=== PATIENT | female | born 1960 | race Caucasian/White ===

== ENCOUNTER 2018-12-12 08:29 | Inpatient (IN) | payer BC ==
[2018-12-12 08:45] VITALS: BMI 30.9
--- NOTE | 2018-12-12 09:21 | HP ---
CIWA Score Nausea/Vomitin Muscle Tremors: 4-Moderate,w/Arms Extend Anxiety: 4-Mod. Anxious/Guarded Agitation: 1-Slight > Activity Paroxysmal Sweats: No Perspiration Orientation: 0-Oriented Tacttile Disturbances: 0-None Auditory Disturbances: 0-None Visual Disturbances: 0-None Headache: 3-Moderate CIWA-Ar Total Score: 15 - Admission Criteria OASAS Guidelines: Admission for Medically Managed Detox: Requires at least one of the followin. CIWA greater than 12 2. Seizures within the past 24 hours 3. Delirium tremens within the past 24 hours 4. Hallucinations within the past 24 hours 5. Acute intervention needed for co occurring medical disorder 6. Acute intervention needed for co occurring psychiatric disorder 7. Severe withdrawal that cannot be handled at a lower level of care (continued vomiting, continued diarrhea, abnormal vital signs) requiring intravenous medication and/or fluids 8. Patient presents the following: CIWA greater than 12 Admission Criteria Met: Admission criteria met Admitting History and Physical - Admission History Source: Patient Limitations to Obtaining History: No Limitations - Social History Usual Living Arrangement: Yes: With Spouse Admission ROS [facility] - [facility] Chief Complaint: I get so sick if I try to stop drinking - I can't do it Allergies/Adverse Reactions: Allergies Allergy/AdvReac Type Severity Reaction Status Date / Time No Known Allergies Allergy Verified 12/12/18 08:39 History of Present Illness: 58 yo woman here for detox from alcohol. First time in detox. No seizures but does have black outs. States she was in outpatient rehab in Feb 2018 and stayed sober for about 8 months but recently relapsed. She tried to stop drinking on her own but got so sick she went to [facility] and was sent for detox. A cxr was done at [facility] but written report cannot be obtained until Friday - noted on ED discharge papers that the CXR initial report was normal. 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 Patient lives with her spouse. Exam Limitations: No Limitations - Ebola screening Have you traveled outside of the country in the last 21 days: No Have you had contact with anyone from an Ebola affected area: No - Review of Systems Constitutional: Chills, Loss of Appetite, Night Sweats, Changes in sleep, Weakness EENT: reports: No Symptoms Reported Respiratory: reports: No Symptoms reported Cardiac: reports: No Symptoms Reported GI: reports: Nausea, Poor Appetite, Poor Fluid Intake, Vomiting, Indigestion, Abdominal cramping : reports: Frequency Musculoskeletal: reports: Joint Pain Integumentary: reports: Dryness Neuro: reports: Headache, Tremors Endocrine: reports: No Symptoms Reported Hematology: reports: No Symptoms Reported Psychiatric: reports: Judgement Intact, Mood/Affect Appropiate, Orientated x3, Anxious Other Systems: Reviewed and Negative Patient History - Patient Medical History Hx Anemia: No Hx Asthma: No Hx Chronic Obstructive Pulmonary Disease (COPD): No Hx Cancer: No Hx Cardiac Disorders: No Hx Congestive Heart Failure: No Hx Hypertension: No Hx Hypercholesterolemia: No Hx Pacemaker: No HX Cerebrovascular Accident: No Hx Seizures: No Hx Diabetes: No Hx Gastrointestinal Disorders: No Hx Liver Disease: No Hx Genitourinary Disorders: No Hx Sexually Transmitted Disorders: No Hx Renal Disease (ESRD): No Hx Thyroid Disease: No Hx Human Immunodeficiency Virus (HIV): No Hx Hepatitis C: No Hx Depression: No Hx Suicide Attempt: No Hx Bipolar Disorder: No Hx Schizophrenia: No Other Medical History: knee OA - Patient Surgical History Hx Abdominal Surgery: Yes (2013 gastric bypass surgery - lost 100 lbs) Hx Section: Yes - PPD History Previous Implant?: Yes Documented Results: Positive w/o proof Implanted On Prior [facility] Admission?: No Date: 12/11/18 (cxr neg) Results: ? BCG vaccine PPD to be Administered?: No - Reproductive History Patient is a Female of Child Bearing Age (11 -55 yrs old): No - Smoking Cessation Smoking history: Former smoker Have you smoked in the past 12 months: No Initiated information on smoking cessation: No - Substance & Tx. History Hx Alcohol Use: Yes Hx Substance Use: No Substance Use Type: Alcohol Hx Substance Use Treatment: Yes (outpatient rehab) - Substances abused Alcohol Substance route: Oral Frequency: Daily Amount used: 1 quart of vodka Age of first use: 19 Date of last use: 12/11/18 Admission Physical Exam [facility] - Vital Signs Vital Signs: Vital Signs - 24 hr 12/12/18 08:39 Temperature 97.2 F L Pulse Rate 93 H Respiratory 20 Rate Blood Pressure 155/91 - Physical General Appearance: Yes: Nourished, Appropriately Dressed, Mild Distress, Moderate Distress, Tremorous, Anxious HEENTM: Yes: EOMI, Hearing grossly Normal, Normocephalic, Normal Voice, Pharynx Normal, Other (tongue coated) Respiratory: Yes: Normal Breath Sounds, No Respiratory Distress Neck: Yes: No masses,lesions,Nodules Breast: Yes: Breast Exam Deferred Cardiology: Yes: Regular Rhythm, Regular Rate Abdominal: Yes: Soft Genitourinary: Yes: Frequency Back: Yes: Normal Inspection Musculoskeletal: Yes: full range of Motion, Gait Steady, Joint Stiffness Extremities: Yes: Normal Capillary Refill, Normal Inspection, Normal Range of Motion, Tremors Neurological: Yes: Fully Oriented, Alert, Normal Mood/Affect, Normal Response Integumentary: Yes: Normal Color, Warm Lymphatic: Yes: Within Normal Limits - Diagnostic (1) Alcohol dependence with withdrawal, uncomplicated Current Visit: Yes Status: Chronic (2) Dehydration Current Visit: Yes Status: Chronic (3) History of gastric bypass Current Visit: Yes Status: Chronic (4) 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
[2018-12-12] MEDS ORDERED: IBUPROFEN 400 MG TABLET (FP) PO PRN (09:33)
[2018-12-12] MEDS ORDERED: ACETAMINOPHEN 325 MG TABLET (FP) PO PRN ×2 (09:33)
[2018-12-12] MEDS ORDERED: MENTHOL/PHENOL 1 EACH UD MM PRN (09:33)
[2018-12-12] MEDS ORDERED: hydrOXYzine PAMOATE 25 MG CAPSULE (FP) PO PRN (09:33)
[2018-12-12] MEDS ORDERED: METHOCARBAMOL 500 MG TABLET PO PRN (09:33)
[2018-12-12] MEDS ORDERED: MAGNESIUM HYDROX 2400MG/30ML ORAL SUSPENSION 30 ML CUP PO PRN (09:33)
[2018-12-12] MEDS ORDERED: MELATONIN 5 MG TABLETS PO PRN (09:33)
[2018-12-12] MEDS ORDERED: BISMUTH SUBSALICYLATE 524 MG/30 ML UD PO PRN (09:33)
[2018-12-12] MEDS ORDERED: MAGNESIUM CITRATE 300 ML BOTTLE PO PRN (09:33)
[2018-12-12] MEDS ORDERED: MAG HYDROX/AL HYDROX/SIMETH 30 ML UNIT-DOSE CUP PO PRN (09:33)
[2018-12-12] MEDS ORDERED: LORazepam 1 MG TABLET PO ONE (09:39)
[2018-12-12] MEDS ORDERED: LORazepam 1 MG TABLET PO SCH (09:45)
[2018-12-12] MEDS ORDERED: chlordiazePOXIDE HCL 25 MG CAPSULE PO PRN (09:45)
[2018-12-12] MEDS ORDERED: chlordiazePOXIDE HCL 25 MG CAPSULE PO ONE (09:45)
[2018-12-12] MEDS: PRENATAL VITAMINS W/ FOLIC ACID TABLET (FP) PO SCH (10:45)
[2018-12-12] MEDS: chlordiazePOXIDE HCL 25 MG CAPSULE PO SCH ×3 (11:19→22:38)
[2018-12-12 11:31] LABS: HEMATOCRIT 32.4 % (32.4-45.2); HEMOGLOBIN 10.3 GM/dL (10.7-15.3); MCH 25.5 pg (25.7-33.7); MCHC 31.8 g/dl (32.0-36.0); MEAN CELL VOLUME 80.3 fl (80-96); MEAN PLT VOLUME 9.9 fl (7.5-11.1); PLATELET COUNT 241 K/MM3 (134-434); RBC 4.04 M/mm3 (3.60-5.2); WHITE BLOOD COUNT 3.6 K/mm3 (4.0-10.0)
[2018-12-12 11:44] LABS: ALBUMIN 3.6 g/dl (3.4-5.0); BILIRUBIN,TOTAL 0.2 mg/dL (0.2-1); BLOOD UREA NITROGEN 10.4 mg/dL (7-18); CREATININE 0.9 mg/dL (0.55-1.3); POTASSIUM 4.7 mmol/L (3.5-5.1); TOT PROT 6.7 g/dl (6.4-8.2)
[2018-12-12] MEDS ORDERED: THIAMINE HCL 100 MG TABLET (FP) PO SCH (22:00)
[2018-12-13] MEDS: chlordiazePOXIDE HCL 25 MG CAPSULE PO SCH ×3 (05:50→18:44)
[2018-12-13] MEDS: PRENATAL VITAMINS W/ FOLIC ACID TABLET (FP) PO SCH (10:38)
--- NOTE | 2018-12-13 16:53 | PN ---
S CIWA - CIWA Score Nausea/Vomitin-Mild Nausea/No Vomiting Muscle Tremors: 3 Anxiety: 3 Agitation: 3 Paroxysmal Sweats: 3 Orientation: 0-Oriented Tacttile Disturbances: 0-None Auditory Disturbances: 0-None Visual Disturbances: 0-None Headache: 0-None Present CIWA-Ar Total Score: 13 [facility] Progress Note (SOAP) Subjective: Feels ok, medication working. Patient requesting to leave tomorrow stating she wants to go home because have to be at work tomorrow. Patient aware she's not ready for discharge but she is planning to leave AMA tomorrow despite encouragement to complete detox. Objective: 12/13/18 16:52 Last Vital Signs Temp Pulse Resp BP Pulse Ox 97.2 F L 104 H 18 131/71 12/13/18 09:48 12/13/18 09:48 12/13/18 09:48 12/13/18 09:48 Laboratory Tests 12/12/18 12/12/18 12/12/18 10:20 10:20 10:20 WBC 3.6 L RBC 4.04 Hgb 10.3 L Hct 32.4 MCV 80.3 MCH 25.5 L MCHC 31.8 L RDW 19.0 H Plt Count 241 MPV 9.9 Sodium 140 Potassium 4.7 Chloride 104 Carbon Dioxide 30 Anion Gap 6 L BUN 10.4 Creatinine 0.9 Est GFR (CKD-EPI)AfAm 82.26 Est GFR (CKD-EPI)NonAf 70.98 Random Glucose 86 Calcium 9.0 Total Bilirubin 0.2 AST 17 ALT 25 Alkaline Phosphatase 66 Total Protein 6.7 Albumin 3.6 RPR Titer Nonreactive Labs reviewed Assessment: 12/13/18 16:52 Withdrawal sxs Plan: Continue detox Encouraged PO water intake
--- NOTE | 2018-12-13 17:01 | DS ---
[facility] Detox Discharge Summary Admission Date: 12/12/18 Discharge Date: 12/13/18 - History Present History: Alcohol Dependence Additional Comments: Patient presented seeking detox for alcohol use. - Physical Exam Results Vital Signs: Vital Signs Temperature 97.2 F L 12/13/18 09:48 Pulse Rate 104 H 12/13/18 09:48 Respiratory Rate 18 12/13/18 09:48 Blood Pressure 131/71 12/13/18 09:48 O2 Sat by Pulse Oximetry (%) Pertinent Admission Physical Exam Findings: Patient presented w/ alcohol withdrawal symptoms admitted to detox. Laboratory Last Values WBC 3.6 K/mm3 (4.0-10.0) L 12/12/18 10:20 RBC 4.04 M/mm3 (3.60-5.2) 12/12/18 10:20 Hgb 10.3 GM/dL (10.7-15.3) L 12/12/18 10:20 Hct 32.4 % (32.4-45.2) 12/12/18 10:20 MCV 80.3 fl (80-96) 12/12/18 10:20 MCH 25.5 pg (25.7-33.7) L 12/12/18 10:20 MCHC 31.8 g/dl (32.0-36.0) L 12/12/18 10:20 RDW 19.0 % (11.6-15.6) H 12/12/18 10:20 Plt Count 241 K/MM3 (134-434) 12/12/18 10:20 MPV 9.9 fl (7.5-11.1) 12/12/18 10:20 Sodium 140 mmol/L (136-145) 12/12/18 10:20 Potassium 4.7 mmol/L (3.5-5.1) 12/12/18 10:20 Chloride 104 mmol/L (98-107) 12/12/18 10:20 Carbon Dioxide 30 mmol/L (21-32) 12/12/18 10:20 Anion Gap 6 MMOL/L (8-16) L 12/12/18 10:20 BUN 10.4 mg/dL (7-18) 12/12/18 10:20 Creatinine 0.9 mg/dL (0.55-1.3) 12/12/18 10:20 Est GFR (CKD-EPI)AfAm 82.26 12/12/18 10:20 Est GFR (CKD-EPI)NonAf 70.98 12/12/18 10:20 Random Glucose 86 mg/dL (74-106) 12/12/18 10:20 Calcium 9.0 mg/dL (8.5-10.1) 12/12/18 10:20 Total Bilirubin 0.2 mg/dL (0.2-1) 12/12/18 10:20 AST 17 U/L (15-37) 12/12/18 10:20 ALT 25 U/L (13-61) 12/12/18 10:20 Alkaline Phosphatase 66 U/L (45-117) 12/12/18 10:20 Total Protein 6.7 g/dl (6.4-8.2) 12/12/18 10:20 Albumin 3.6 g/dl (3.4-5.0) 12/12/18 10:20 RPR Titer Nonreactive (NONREACTIVE) 12/12/18 10:20 Labs reviewed. - Treatment Hospital Course: Detox Protocol Followed (Encouraged to stay longer.), Discharged Condition Good (Alert and oriented. Gait steady. Denies subjective symptoms. 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 )
[2018-12-13 17:19] VITALS: BP 126/75; PULSE 109; TEMP 98.2
[2018-12-14] MEDS ORDERED: chlordiazePOXIDE HCL 10 MG CAPSULE PO SCH (12:00)
[2018-12-15] MEDS ORDERED: chlordiazePOXIDE HCL 10 MG CAPSULE PO ONE (05:00)
== END 2018-12-13 17:21 | disposition home or self-care (01) | DRG 897 ==
LOC: YASAS 08:29 → Y6N 10:24
PROVIDERS: ADMIT Allergy & Immunology; ATTEND Allergy & Immunology
PROC: HZ2ZZZZ Detoxification Services for Substance Abuse Treatment (ICD-10-PCS; principal; 2018-12-12)
DX: F10.230 Alcohol dependence with withdrawal, uncomplicated (principal); E86.0 Dehydration; R76.11 Nonspecific reaction to tuberculin skin test without active tuberculosis; Z98.84 Bariatric surgery status
CPT/HCPCS: 36415; 80053; 85027; 86593